=== PATIENT | male | born 2005 | race Caucasian/White ===

== ENCOUNTER 2024-08-30 18:09 | Emergency (ER) | payer OTHER, SELFPAY ==
[2024-08-30 18:11] VITALS: BP 151/88; PULSE 75; RESP 18; TEMP 36.5; O2SAT 99; BMI 21.8
--- NOTE | 2024-08-30 18:28 | CT_ITS ---
EXAM: BRAIN/HEAD WITHOUT CONTRAST CLINICAL HISTORY: 19-year-old male, FOREHEAD TRAUMA, LEFT ORBIT TRAUMA RADIATION DOSE SUMMARY: CTDlvol: 45 mGy DLP: 812 mGycm COMPARISON: None. TECHNIQUE: Routine CT imaging of the head without IV contrast. Additional multiplanar reformats were obtained. Dose reduction techniques were used including intermediate exposure control (AEC),iterative reconstruction technique, and/or mA and/or KV dose adjustments based on patient's size. FINDINGS: No acute intracranial hemorrhage or mass effect. The thomas-white matter interfaces are maintained. No ventriculomegaly. The basal cisterns are patent. Hematoma along the superior medial left orbit. No radiopaque retained foreign body. The extraocular muscles and bilateral optic nerves are grossly symmetric without stranding or edema visualized by noncontrast examination. Mild mucosal thickening of the right maxillary sinus. The visualized paranasal sinuses and mastoids are otherwise unremarkable. No acute calvarial fracture. CT/Brain/Head without Contrast IMPRESSION: 1. Hematoma along the superior medial left orbit. The left orbit is otherwise unremarkable by noncontrast examination. 2. No acute intracranial finding. Reading Location: [id number]
--- NOTE | 2024-08-30 18:30 | EDS_ITS ---
HPI History of Present Illness Chief Complaint: Laceration Detail of Chief Complaint: Head injury Informant: patient Narrative Narrative: Patient presents with a head injury that occurred about 2:30 PM today. Patient states that he was tightening up a ratchet strap and it came undone and the metal portion of the strap struck him between the eyes. Patient denies loss of consciousness. He sustained a laceration. Denies any vision change. Patient unsure of his last tetanus shot but thinks it has been more than 10 years. PFSH PFSH Allergy/AdvReac Type Severity Reaction Status Date / Time No Known Allergies Allergy Verified 08/30/24 18:10 Social History Smoking Status: Never smoker ROS ROS ED Review of Systems ROS Unobtainable: other Constitutional Constitutional ED: Reports lethargy; Denies chills, fever(s), sweats or weight loss Eyes Eyes: Denies blurry vision, change in vision or diplopia ENT ENT ED: Reports other Details: Head injury, facial laceration ; Denies rhinorrhea or sore throat Cardiovascular Cardiovascular: Denies chest pain, orthopnea or racing heartbeat Respiratory/Chest Respiratory/Chest: Denies cough, dyspnea, dyspnea on exertion, orthopnea or sputum Gastrointestinal Gastrointestinal: Denies abdominal pain, diarrhea, nausea or vomiting Genitourinary Genitourinary ED: Denies dysuria, hematuria or urinary frequency Musculoskeletal Musculoskeletal: Denies arthralgias, back pain, myalgias or neck pain Integumentary Denies abscess, Abrasions or rash Neurologic Neurologic: Denies headache(s) or weakness Psychiatric Psychiatric: Denies anxiety, depression or suicidal thoughts Endocrine Endocrinology: Denies polydipsia, polyphagia or polyuria Hematologic/Lymphatic Hematologic/Lymphatic: Denies easy bleeding, easy bruising or lymphadenopathy Allergic/Immunologic Allergic/Immunologic ED: Denies mouth swelling, tongue swelling or urticaria EXAM Physical Exam Const Vital Signs: 08/30/24 18:11 Temperature 97.7 F L Temperature Source Temporal Pulse Rate 75 Respiratory Rate 18 Blood Pressure 151/88 H Blood Pressure Mean 109 Pulse Ox 99 Oxygen Delivery Method Room Air Positive well nourished and well developed General Appearance ED: well developed and NAD HEENT Reports TM's clear and moist mucous membranes HEENT Narrative: Patient has diffuse ecchymosis and bruising about the left orbit with the left upper eyelid swollen shut. Patient has a 2 cm laceration below left eyebrow. Mild diffuse bony tenderness over the upper portion of the medial orbit normocephalic and atraumatic; Negative for trauma or tenderness Tympanic Membrane ED: Yes TM's clear Eyes PERRL and EOMs intact bilaterally General Eye ED: Negative for pale conjunctiva or scleral icterus Neck no lymphadenopathy, supple and no JVD General: Negative for tenderness Chest Wall inspection of chest normal and palpation of chest normal Chest: Negative for tenderness Resp normal respiratory effort and clear to auscultation bilaterally Effort and Inspection: Negative for respiratory distress or pain with movement Auscultation: Negative for rhonchi, wheezes or diminished lung sounds Cardio regular rate, regular rhythm, S1 normal heart sound, S2 normal heart sound and no murmurs Peripheral Pulses: pulses 2+ throughout GI normal to inspection, nondistended, normoactive bowel sounds, soft to palpation, non-tender, non-distended and no masses Back/Spine no CVA tenderness and no thoracic nor lumbar tenderness Extremity normal to inspection General Extremety ED: Negative for edema General Extremity: Negative for edema Neuro oriented x3, CN's II-XII intact bilaterally, no sensory deficits noted and gait normal Sensorium / Orientation: awake, alert, oriented to person, oriented to place and oriented to time Motor Exam: strength 5/5 throughout and strength abnormal Psych mental status grossly normal Skin no rashes or lesions noted and no wounds PROC Procedures Lacerations Facial laceration: Length: 0.79 in Depth: Sub Q Shape: Linear Prep: Sterile Conditions Laceration repair: Irrigated, Lidocaine and Skin sutures Irrigated (ml): 50 Number of Sutures/[place]: 3 Suture Information: Ethilon, Simple and 6-0 [facility] [place] Narrative Medical decision making narrative: Patient with injury to his face/upper left orbit. Just inferior to the eyebrow there is a 2 cm laceration. Will obtain a CT scan to rule out orbital fracture. Patient also had superficial repair of his laceration please see procedure note. He is advised to have sutures removed in 5 to 7 days. Advised to return if increasing pain, redness, swelling, purulent drainage, or condition should worsen anyway. CT scan of the brain showed no intracranial hemorrhage or orbital fractures. Lab Data Attestation: I reviewed the patient's lab results. Radiography Diagnostic Testing: Clinical Impression(s) from Imaging Studies Brain CT 08/30/24 18:28 IMPRESSION: 1. Hematoma along the superior medial left orbit. The left orbit is otherwise unremarkable by noncontrast examination. 2. No acute intracranial finding. Reading Location: [facility] Discharge Plan Triage Chief Complaint: Laceration ED Provider: Melvi Ansari Dx/Rx/DC Orders Clinical Impression: Closed head injury, Facial laceration Instructions: ED Head Injury (Adult), ED Laceration, All Closures Primary Care Provider: Aba Gamboa Referrals: Aba Gamboa MD [Primary Care Provider] - 5 Days for suture removal Print Language: Stateless Disposition Disposition: Home, Self Care
[2024-08-30] MEDS: Diphth,Pertuss(Acell),Tet Vac 0.5 ML Vial IM (18:37)
[2024-08-30] MEDS: Lidocaine 1% (20 ml mdv) 20 ML Vial 4 ML INFILT (18:37)
== END 2024-08-30 20:28 | disposition home or self-care (01) ==
PROVIDERS: Emergency Provider Emergency Medicine; PCP Family Medicine; Referring Provider Emergency Medicine; Visit Provider Emergency Medicine
DX: S01.112A Laceration without foreign body of left eyelid and periocular area, initial encounter (principal); S09.90XA Unspecified injury of head, initial encounter; W22.8XXA Striking against or struck by other objects, initial encounter; Y93.89 Activity, other specified
CPT/HCPCS: 12011; 70450; 90715; 99283